=== PATIENT | female | born 1955 | race Caucasian/White ===

== ENCOUNTER 2020-02-12 09:14 | Inpatient (IN) | payer OTHER ==
[~2020-02-12] VITALS: Ht 167.6 cm; Wt 69.2 kg
[2020-02-12 11:01] LABS: BASO % 0.2 % (0.0-1.0); EOS % 0.3 % (0.0-3.0); HEMATOCRIT 35.2 % (36.0-47.0); HEMOGLOBIN 11.4 g/dl (12.0-15.5); LYMPH # 1.1 10^3/uL (1.5-5.0); LYMPH % 8.9 % (24.0-44.0); MEAN CORPUSCULAR HEMOGLOBIN 29.8 pg (27.0-33.0); MEAN CORPUSCULAR HGB CONC 32.4 g/dl (32.0-36.5); MEAN CORPUSCULAR VOLUME 92.1 fl (80.0-96.0); MONO # 1.4 10^3/uL (0.0-0.8); NEUTROPHILS # 9.7 10^3/uL (1.5-8.5); NEUTROPHILS % 78.9 % (36.0-66.0); PLATELET COUNT, AUTOMATED 222 10^3/uL (150-450); RED BLOOD COUNT 3.82 10^6/uL (4.00-5.40); WHITE BLOOD COUNT 12.3 10^3/uL (4.0-10.0)
[2020-02-12] MEDS ORDERED: ISOVUE-370 76% 100ML VIAL As Ordered ONE (11:10)
[2020-02-12 11:43] LABS: ERYTHROCYTE SEDIMENTATION RATE 85 mm/hr (0-30)
--- NOTE | 2020-02-12 11:55 | REPVR ---
PROCEDURE INFORMATION: Exam: CT Neck With Contrast Exam date and time: 02/12/2020 10:30 AM Age: 64 years old Clinical indication: Mass, lump, or swelling in neck; Additional info: Swelling, redness to right neck R/O infection TECHNIQUE: Imaging protocol: Computed tomography images of the neck with intravenous contrast. Radiation optimization: All CT scans at this facility use at least one of these dose optimization techniques: automated exposure control; mA and/or kV adjustment per patient size (includes targeted exams where dose is matched to clinical indication); or iterative reconstruction. Contrast material: ISOVUE 370; Contrast volume: 75 ml; Contrast route: INTRAVENOUS (IV); COMPARISON: No relevant prior studies available. FINDINGS: Nasopharynx: Unremarkable. Oropharynx: Partially obscured by spray artifact from dental hardware. No tonsillar abscess is seen. An enlarged right parapharyngeal lymph node is noted. Hypopharynx/larynx: There is mild leftward displacement of the hypopharynx and larynx. There is no stenosis. Retropharyngeal space: Unremarkable. Submandibular/Parotid glands: See "Soft tissues" finding. Thyroid: Normal. No enlarged or calcified nodules. Lymph nodes: Mild cervical lymphadenopathy is present, more pronounced on the right. Trachea: Visualized trachea is unremarkable. Lungs: Unremarkable as visualized. Bones/joints: Moderate degenerative changes of the cervical spine are present. Soft tissues: There is a large multilocular abscess in the right neck, measuring approximately 6.5 x 5.8 x 3.3 cm. The abscess extends from the right mandibular angle to the cricoid cartilage. Moderate surrounding inflammation is present. The abscess is displacing the right submandibular gland anteriorly and inferiorly. Infection may extend into the right parotid gland. There is an absent fat plane between the abscess and the right sternocleidomastoid muscle. There is compression and posteromedial displacement of the sternocleidomastoid muscle. IMPRESSION: Large multilocular abscess in the right neck as discussed above. Further evaluation is recommended. Electronically signed by: Chi Perry On 02/12/2020 11:55:43 AM
[2020-02-12] MEDS ORDERED: dexameTHASONE 20MG/5ML VIAL (J1100 PER 1MG) IV ONE (12:15)
[2020-02-12] MEDS ORDERED: AMPICILLIN SOD/SULBACTAM SOD 3 GM in D5W MINI-BAG PLUS 100 ML IV ONE (12:15)
[2020-02-12] MEDS ORDERED: NS 1,000 ML IV SCH (14:15)
[2020-02-12] MEDS ORDERED: BIOT1CAP2 PO (14:30)
[2020-02-12] MEDS ORDERED: FISH1000 PO (14:30)
[2020-02-12] MEDS ORDERED: VITA-158 PO (14:30)
[2020-02-12] MEDS ORDERED: COQ1200C3 PO (14:30)
[2020-02-12] MEDS ORDERED: VITA1CAP21 PO (14:30)
[2020-02-12] MEDS ORDERED: VITA400C56 PO (14:30)
[2020-02-12] MEDS ORDERED: LUTE20CA7 PO (14:30)
[2020-02-12] MEDS ORDERED: IBUP200T45 PO (14:30)
[2020-02-12] MEDS ORDERED: LIDOCAINE 2% 100MG/5ML SDV (FOR ANES.) As Ordered ONE ×2 (15:11→17:42)
[2020-02-12] MEDS ORDERED: LIDOCAINE 2% INJ 100 MG/5 ML SYRINGE As Ordered ONE (15:11)
[2020-02-12] MEDS ORDERED: SUCCINYLCHOLINE 100 MG/5 ML SYRINGE (J0330) As Ordered ONE (15:11)
[2020-02-12] MEDS ORDERED: ROCURONIUM BROMIDE 50 MG/5 ML VIAL As Ordered ONE (15:11)
[2020-02-12] MEDS ORDERED: propofoL 200 MG/20 ML VIAL As Ordered ONE (15:11)
--- NOTE | 2020-02-12 15:15 | HPEPDOC ---
[facility] Medical History & Physical Date of Admission Feb 12, 2020 Date of Service: Feb 12, 2020 Attending Physician: JD CASTILLO MD History and Physical CHIEF COMPLAINT: neck pain HISTORY OF PRESENT ILLNESS: 64 y/o F with no significant PMHx who presents with reports of right neck pain and swelling. Pt initially saw 2 dentists after noticing it Jan 23. She was prescribed abx but did not take them, stating she preferred taking herbs. Pt was seen by Dr Mason a week ago who asked that she have a CT, recommended Abx which she refused. 5 days ago, pt noticed increased swelling and redness at the right neck region extending to her chest. She denies trouble swallowing or breathing. Pt went to urgent care last night who asked the pt to go to the ER. Pt presents with increased pain and swelling and noted to have a large abscess. Dr. Peralta consulted in the ER. He will see pt after clinic and take pt to OR. Recc holding off on additional decadron (pt only received 1 dose 8mg in ER). Als o recc ID consult. Pt noted trouble opening mouth although no airway compromise. I have called Anesthesia and they are aware. PAST MEDICAL HISTORY: None PAST SURGICAL HISTORY:None SOCIAL HISTORY:Denies tobacco, alcohol, illicit drugs. FAMILY HISTORY:Non contributory ALLERGIES: Please see below. REVIEW OF SYSTEMS: HEENT: Denies sore throat/headache. +neck pain CARDIOVASCULAR: Denies chest pain/palpitations RESPIRATORY: Denies shortness of breath/cough GASTROINTESTINAL: denies nausea/vomiting GENITOURINARY: Denies dysuria/urinary urgency. MUSCULOSKELETAL: Denies myalgias/arthralgias NEUROLOGICAL: Denies any focal weakness HOME MEDICATIONS: Please see below. PHYSICAL EXAMINATION: Vitals: (see below) General: No acute distress, laying comfortably in bed. HEENT: Moist mucous membranes.No dental pain or oral abscess. Pt has trouble fully opening mouth, however airway patent. Neck: No JVD. Right neck swelling, induration, erythema extending to sternal region. no purulent drainage. Cardiac: RRR, No murmurs Pulm: Clear to auscultation b/l. No wheezing, rhonchi Abd: NT/ND + BS Ext: No edema or cyanosis LABORATORY DATA: See below. IMAGING: CT Neck 02/12/20 FINDINGS: Nasopharynx: Unremarkable. Oropharynx: Partially obscured by spray artifact from dental hardware. No tonsillar abscess is seen. An enlarged right parapharyngeal lymph node is noted. Hypopharynx/larynx: There is mild leftward displacement of the hypopharynx and larynx. There is no stenosis. Retropharyngeal space: Unremarkable. Submandibular/Parotid glands: See "Soft tissues" finding. Thyroid: Normal. No enlarged or calcified nodules. Lymph nodes: Mild cervical lymphadenopathy is present, more pronounced on the right. Trachea: Visualized trachea is unremarkable. Lungs: Unremarkable as visualized. Bones/joints: Moderate degenerative changes of the cervical spine are present. Soft tissues: There is a large multilocular abscess in the right neck, measuring approximately 6.5 x 5.8 x 3.3 cm. The abscess extends from the right mandibular angle to the cricoid cartilage. Moderate surrounding inflammation is present. The abscess is displacing the right submandibular gland anteriorly and inferiorly. Infection may extend into the right parotid gland. There is an absent fat plane between the abscess and the right sternocleidomastoid muscle. There is compression and posteromedial displacement of the sternocleidomastoid muscle. IMPRESSION: Large multilocular abscess in the right neck as discussed above. Further evaluation is recommended. MICROBIOLOGY: Please see below. ASSESSMENT/PLAN: 1. Large neck abscess - with leukocytosis. Pt had refused outpt abx. CT Neck (S ee above). Dr. Peralta consulted - will take to OR today. Bld cx sent. Unasyn. ID consulted. Further recc by ID/ENT. DVT Prophy:Hep sq Vital Signs Vital Signs Date Time Temp Pulse Resp B/P (MAP) Pulse Ox O2 Delivery O2 Flow Rate FiO2 02/12/20 13:18 98.3 78 20 119/56 (77) 99 Room Air Laboratory Data Labs 24H Laboratory Tests 2 02/12/20 10:40: Immature Granulocyte % (Auto) 0.7, Neutrophils (%) (Auto) 78.9H, Lymphocytes (%) (Auto) 8.9L, Monocytes (%) (Auto) 11.0H, Eosinophils (%) (Auto) 0.3, Basophils (%) (Auto) 0.2, Neutrophils # (Auto) 9.7H, Lymphocytes # (Auto) 1.1L, Monocytes # (Auto) 1.4H, Eosinophils # (Auto) 0.0, Basophils # (Auto) 0.0, Nucleated Red Blood Cells % (auto) 0.0, Erythrocyte Sedimentation Rate 85H, Lactic Acid Level 1.2, C-Reactive Protein, Quantitative 13.90H 02/12/20 10:51: POC Glucose (Misc Panel) 115H, POC Sodium (Misc Panel) 131L, POC Potassium (Misc Panel) 4.1, POC Chloride (Misc Panel) 93L, POC Total CO2 (Misc Panel) 28.0H, POC Blood Urea Nitrogen (Misc Panel 5L, POC Ionized Calcium (Misc Panel) 4.6, POC Creatinine (Misc Panel) 0.6, POC Hematocrit (Misc Panel) 39.0 02/12/20 14:09: CBC/BMP Laboratory Tests 02/12/20 10:40 Microbiology Microbiology 02/12/20 Blood Culture, Received Pending 02/12/20 Blood Culture, Received Pending Home Medications Scheduled Ascorbic Acid (Vitamin C) 500 Mg Tablet, 500 MG PO DAILY Biotin (Biotin) 1 Mg Capsule, 1 MG PO DAILY Lutein (Lutein) 20 Mg Capsule, 20 MG PO DAILY [place]-3 Fatty Acids/Fish Oil (Fish Oil 1,000 mg Capsule) 1 Each Capsule, 1,000 MG PO DAILY Ubidecarenone (Co Q10) 200 Mg Capsule, 200 MG PO DAILY Vitamin A Palmitate (Vitamin A) 10,000 Unit Capsule, 10,000 UNIT PO DAILY Vitamin E (Vitamin E) 400 Unit Capsule, 400 UNIT PO DAILY Scheduled PRN Ibuprofen (Ibu-200) 200 Mg Tablet, 200 MG PO Q6H PRN for PAIN Allergies Coded Allergies: No Known Allergies (Unverified , 02/12/20) A-FIB/CHADSVASC A-FIB History Current/History of A-Fib/PAF?: No JD CASTILLO MD Feb 12, 2020 15:15
[2020-02-12] MEDS ORDERED: LIDOCAINE W/EPINEPHRINE 1% 20ML VIAL As Ordered ONE (15:31)
[2020-02-12] MEDS ORDERED: POLYSPORIN TOPICAL OINTMENT 15GM As Ordered ONE (15:31)
[2020-02-12] MEDS ORDERED: MIDAZOLAM INJ 2MG/2ML VIAL (J2250 PER 1MG) As Ordered ONE (16:12)
[2020-02-12] MEDS ORDERED: fentaNYL 100 MCG/2 ML INJECTION (J3010) As Ordered ONE ×3 (16:13→18:53)
[2020-02-12] MEDS ORDERED: ACETAMINOPHEN 1000MG 100ML IV BTL (OFIRMEV) (J0131 PER 10MG) As Ordered ONE (17:42)
[2020-02-12] MEDS ORDERED: VANCOMYCIN 500MG/10ML VIAL As Ordered ONE (17:57)
[2020-02-12] MEDS ORDERED: SUGAMMADEX SODIUM 500 MG/5 ML VIAL (BRIDION) As Ordered ONE (18:30)
[2020-02-12] MEDS ORDERED: ONDANSETRON 4MG/2ML VIAL As Ordered ONE (18:52)
[2020-02-12] MEDS ORDERED: METOCLOPRAMIDE INJ 10MG/2ML VIAL (J2765 PER 1) As Ordered ONE (18:53)
[2020-02-12] MEDS ORDERED: oxyCODONE 5MG TAB As Ordered ONE (18:53)
[2020-02-12] MEDS: fentaNYL 100 MCG/2 ML INJECTION (J3010) IV PRN ×2 (18:58→19:10)
[2020-02-12] MEDS ORDERED: AMPICILLIN SOD/SULBACTAM SOD 3 GM in D5W MINI-BAG PLUS 100 ML IV SCH (19:00)
[2020-02-12] MEDS ORDERED: ONDANSETRON 4MG/2ML VIAL IV PRN (19:15)
[2020-02-12] MEDS ORDERED: MEPERIDINE INJ 25 MG/ML VIAL (J2175) IV PRN (19:15)
[2020-02-12] MEDS ORDERED: oxyCODONE 5MG TAB PO PRN (19:15)
[2020-02-12] MEDS ORDERED: LR 1,000 ML IV SCH (19:15)
[2020-02-12] MEDS ORDERED: METOCLOPRAMIDE INJ 10MG/2ML VIAL (J2765 PER 1) IV PRN (19:15)
[2020-02-12 20:00] VITALS: BP 122/58
[2020-02-12 20:30] VITALS: BP 117/57
[2020-02-12 21:00] VITALS: BP 111/55
[2020-02-12] MEDS: VANCOMYCIN HCL 1,000 MG, VIAL MATE ADAPTER 1 EACH in D5W 250 ML IV SCH (21:49)
[2020-02-12 22:00] VITALS: BP 94/60
[2020-02-12] MEDS: PIPERACILLIN/TAZOBACTAM SOD 4.5 GM in D5W MINI-BAG PLUS 50 ML IV SCH (23:14)
[2020-02-13] VITALS: BP 100/56
[2020-02-13 04:00] VITALS: BP 102/54
[2020-02-13] MEDS: PIPERACILLIN/TAZOBACTAM SOD 4.5 GM in D5W MINI-BAG PLUS 50 ML IV SCH ×4 (04:19→22:18)
[2020-02-13 05:52] LABS: HEMATOCRIT 33.4 % (36.0-47.0); HEMOGLOBIN 10.9 g/dl (12.0-15.5); RED BLOOD COUNT 3.67 10^6/uL (4.00-5.40); WHITE BLOOD COUNT 12.3 10^3/uL (4.0-10.0)
[2020-02-13 05:53] LABS: BASO % 0.2 % (0.0-1.0); LYMPH # 0.8 10^3/uL (1.5-5.0); LYMPH % 6.6 % (24.0-44.0); MEAN CORPUSCULAR HEMOGLOBIN 29.7 pg (27.0-33.0); MEAN CORPUSCULAR HGB CONC 32.6 g/dl (32.0-36.5); MONO # 0.5 10^3/uL (0.0-0.8); MONO % 4.2 % (0.0-5.0); NEUTROPHILS # 10.9 10^3/uL (1.5-8.5); NEUTROPHILS % 88.3 % (36.0-66.0); PLATELET COUNT, AUTOMATED 248 10^3/uL (150-450)
[2020-02-13] MEDS: LR 1,000 ML IV SCH ×3 (06:21→19:22)
[2020-02-13 06:29] LABS: ALBUMIN 2.4 GM/DL (3.2-5.2); ALT/SGPT 35 U/L (12-78); BILIRUBIN,TOTAL 0.5 MG/DL (0.2-1.0); BLOOD UREA NITROGEN 12 MG/DL (7-18); CALCIUM LEVEL 8.4 MG/DL (8.8-10.2); CARBON DIOXIDE LEVEL 27 MEQ/L (21-32); CHLORIDE LEVEL 100 MEQ/L (98-107); CREATININE FOR GFR 0.64 MG/DL (0.55-1.30); GLOMERULAR FILTRATION RATE > 60.0 (>45); GLUCOSE, FASTING 126 MG/DL (70-100); POTASSIUM SERUM 4.4 MEQ/L (3.5-5.1); SODIUM LEVEL 136 MEQ/L (136-145); TOTAL PROTEIN 6.7 GM/DL (6.4-8.2)
[2020-02-13 06:41] LABS: ERYTHROCYTE SEDIMENTATION RATE 85 mm/hr (0-30)
[2020-02-13 08:00] VITALS: BP 115/56
[2020-02-13] MEDS: VANCOMYCIN HCL 1,000 MG, VIAL MATE ADAPTER 1 EACH in D5W 250 ML IV SCH ×2 (08:30→20:48)
--- NOTE | 2020-02-13 10:08 | IPNPDOC ---
Text Note Date of Service The patient was seen on 02/13/20. NOTE Subjective: Pt feels better. Swelling improved. Able to open her mouth more. No CP/SOB/. Neck/chest erythema improved. PHYSICAL EXAMINATION: Vitals: (see below) General: No acute distress, laying comfortably in bed. HEENT: Moist mucous membranes.No dental pain or oral abscess. Able to open her mouth more. No jaw pain. Airway patent. Neck: No JVD. Right neck swelling, erythema improving. no purulent drainage. Cardiac: RRR, No murmurs Pulm: Clear to auscultation b/l. No wheezing, rhonchi Abd: NT/ND + BS Ext: No edema or cyanosis LABORATORY DATA: See below. IMAGING: CT Neck 02/12/20 FINDINGS: Nasopharynx: Unremarkable. Oropharynx: Partially obscured by spray artifact from dental hardware. No tonsillar abscess is seen. An enlarged right parapharyngeal lymph node is noted. Hypopharynx/larynx: There is mild leftward displacement of the hypopharynx and larynx. There is no stenosis. Retropharyngeal space: Unremarkable. Submandibular/Parotid glands: See "Soft tissues" finding. Thyroid: Normal. No enlarged or calcified nodules. Lymph nodes: Mild cervical lymphadenopathy is present, more pronounced on the right. Trachea: Visualized trachea is unremarkable. Lungs: Unremarkable as visualized. Bones/joints: Moderate degenerative changes of the cervical spine are present. Soft tissues: There is a large multilocular abscess in the right neck, measuring approximately 6.5 x 5.8 x 3.3 cm. The abscess extends from the right mandibular angle to the cricoid cartilage. Moderate surrounding inflammation is present. The abscess is displacing the right submandibular gland anteriorly and inferiorly. Infection may extend into the right parotid gland. There is an absent fat plane between the abscess and the right sternocleidomastoid muscle. There is compression and posteromedial displacement of the sternocleidomastoid muscle. IMPRESSION: Large multilocular abscess in the right neck as discussed above. Further evaluation is recommended. MICROBIOLOGY: Please see below. ASSESSMENT/PLAN: 1. Large neck abscess s/p I&D, concern for necrotizing fascitis --> Abx broadened to Vanco/Zosyn per Dr Sweet. . CT Neck (See above). Appreciate Dr. Peralta's input. \\Bld cx sent. Further recc by ID/ENT. DVT Prophy:Hep sq VS,Fishbone, I+O VS, Fishbone, I+O Laboratory Tests 02/12/20 10:40 02/13/20 04:58 Vital Signs Date Time Temp Pulse Resp B/P (MAP) Pulse Ox O2 Delivery O2 Flow Rate FiO2 02/13/20 08:00 98.1 57 20 115/56 (75) 97 Room Air I&O- Last 24 Hours up to 6 AM 02/13/20 06:00 Intake Total 2330 ml Output Total 0 ml Balance 2330 ml JD CASTILLO MD Feb 13, 2020 10:07
[2020-02-13 12:00] VITALS: BP 119/57
[2020-02-13] MEDS: HEPARIN SOD (PORCINE) 5000UNITS/ML 1ML VIAL/SYRINGE SQ SCH ×2 (13:36→21:24)
[2020-02-13 16:00] VITALS: BP 115/68
[2020-02-13 20:00] VITALS: BP 119/59
[2020-02-14] VITALS: BP 100/57
[2020-02-14] MEDS: MUPIROCIN 2% OINT 22 GM TUBE TOP SCH ×4 (02:17→20:55)
[2020-02-14 04:00] VITALS: BP 118/62
[2020-02-14] MEDS: LR 1,000 ML IV SCH ×3 (04:51→22:30)
[2020-02-14] MEDS: PIPERACILLIN/TAZOBACTAM SOD 4.5 GM in D5W MINI-BAG PLUS 50 ML IV SCH ×4 (04:51→22:30)
[2020-02-14] MEDS: HEPARIN SOD (PORCINE) 5000UNITS/ML 1ML VIAL/SYRINGE SQ SCH ×3 (05:02→20:55)
[2020-02-14 08:00] VITALS: BP 142/64
[2020-02-14 08:11] LABS: BASO % 0.6 % (0.0-1.0); EOS # 0.1 10^3/uL (0.0-0.5); HEMOGLOBIN 10.6 g/dl (12.0-15.5); LYMPH # 2.5 10^3/uL (1.5-5.0); LYMPH % 34.2 % (24.0-44.0); MEAN CORPUSCULAR HEMOGLOBIN 29.4 pg (27.0-33.0); MEAN CORPUSCULAR HGB CONC 32.1 g/dl (32.0-36.5); MEAN CORPUSCULAR VOLUME 91.4 fl (80.0-96.0); MONO # 0.5 10^3/uL (0.0-0.8); MONO % 7.4 % (0.0-5.0); NEUTROPHILS # 4.1 10^3/uL (1.5-8.5); NEUTROPHILS % 56.7 % (36.0-66.0); PLATELET COUNT, AUTOMATED 244 10^3/uL (150-450); RED BLOOD COUNT 3.61 10^6/uL (4.00-5.40); WHITE BLOOD COUNT 7.2 10^3/uL (4.0-10.0)
[2020-02-14 09:02] LABS: ERYTHROCYTE SEDIMENTATION RATE 73 mm/hr (0-30)
[2020-02-14] MEDS ORDERED: ACETAMINOPHEN TAB 650MG DOSE (2X325MG) PO PRN (09:15)
[2020-02-14 09:58] LABS: ALBUMIN 2.4 GM/DL (3.2-5.2); ALT/SGPT 36 U/L (12-78); BILIRUBIN,TOTAL 0.3 MG/DL (0.2-1.0); BLOOD UREA NITROGEN 14 MG/DL (7-18); C REACTIVE PROTEIN QUANTITATIV 8.62 MG/DL (0.00-0.30); CALCIUM LEVEL 8.6 MG/DL (8.8-10.2); CARBON DIOXIDE LEVEL 30 MEQ/L (21-32); CHLORIDE LEVEL 107 MEQ/L (98-107); CREATININE FOR GFR 0.86 MG/DL (0.55-1.30); GLOMERULAR FILTRATION RATE > 60.0 (>45); GLUCOSE, FASTING 89 MG/DL (70-100); POTASSIUM SERUM 4.2 MEQ/L (3.5-5.1); SODIUM LEVEL 142 MEQ/L (136-145); TOTAL PROTEIN 6.4 GM/DL (6.4-8.2)
[2020-02-14] MEDS: VANCOMYCIN HCL 1,000 MG, VIAL MATE ADAPTER 1 EACH in D5W 250 ML IV SCH ×2 (10:38→20:54)
--- NOTE | 2020-02-14 10:45 | IPNPDOC ---
Text Note Date of Service The patient was seen on 02/14/20. NOTE Subjective: Pt feels better. Swelling and erythema improved. No CP/SOB/. Ne ck/chest erythema improved. PHYSICAL EXAMINATION: Vitals: (see below) General: No acute distress, laying comfortably in bed. HEENT: Moist mucous membranes.No dental pain or oral abscess. Able to open her mouth more. No jaw pain. Airway patent. Neck: No JVD. Right neck swelling, erythema improving. no purulent drainage. Incision site clean and dry Cardiac: RRR, No murmurs Pulm: Clear to auscultation b/l. No wheezing, rhonchi Abd: NT/ND + BS Ext: No edema or cyanosis LABORATORY DATA: See below. IMAGING: CT Neck 02/12/20 FINDINGS: Nasopharynx: Unremarkable. Oropharynx: Partially obscured by spray artifact from dental hardware. No tonsillar abscess is seen. An enlarged right parapharyngeal lymph node is noted. Hypopharynx/larynx: There is mild leftward displacement of the hypopharynx and larynx. There is no stenosis. Retropharyngeal space: Unremarkable. Submandibular/Parotid glands: See "Soft tissues" finding. Thyroid: Normal. No enlarged or calcified nodules. Lymph nodes: Mild cervical lymphadenopathy is present, more pronounced on the right. Trachea: Visualized trachea is unremarkable. Lungs: Unremarkable as visualized. Bones/joints: Moderate degenerative changes of the cervical spine are present. Soft tissues: There is a large multilocular abscess in the right neck, measuring approximately 6.5 x 5.8 x 3.3 cm. The abscess extends from the right mandibular angle to the cricoid cartilage. Moderate surrounding inflammation is present. The abscess is displacing the right submandibular gland anteriorly and inferiorly. Infection may extend into the right parotid gland. There is an absent fat plane between the abscess and the right sternocleidomastoid muscle. There is compression and posteromedial displacement of the sternocleidomastoid muscle. IMPRESSION: Large multilocular abscess in the right neck as discussed above. Further evaluation is recommended. MICROBIOLOGY: Please see below. ASSESSMENT/PLAN: 1. Large neck abscess s/p I&D, concern for necrotizing fascitis --> Abx broadened to Vanco/Zosyn per Dr Sweet. . CT Neck (See above). Appreciate Dr. Peralta's input. wound/Bld cx sent and pending. Further recc by ID/ENT. DVT Prophy:Hep sq VS,Fishbone, I+O VS, Fishbone, I+O Laboratory Tests 02/14/20 07:57 Vital Signs Date Time Temp Pulse Resp B/P (MAP) Pulse Ox O2 Delivery O2 Flow Rate FiO2 02/14/20 08:00 100.0 61 18 142/64 (90) 97 Room Air I&O- Last 24 Hours up to 6 AM 02/14/20 06:00 Intake Total 4430 ml Output Total 0 ml Balance 4430 ml JD CASTILLO MD Feb 14, 2020 10:45
[2020-02-14 12:00] VITALS: BP 121/58
[2020-02-14 16:00] VITALS: BP 118/62
[2020-02-14 20:00] VITALS: BP 116/56
[2020-02-15] VITALS: BP 110/57
[2020-02-15 04:00] VITALS: BP 119/69
[2020-02-15] MEDS: PIPERACILLIN/TAZOBACTAM SOD 4.5 GM in D5W MINI-BAG PLUS 50 ML IV SCH ×4 (05:10→21:26)
[2020-02-15] MEDS: HEPARIN SOD (PORCINE) 5000UNITS/ML 1ML VIAL/SYRINGE SQ SCH ×4 (05:33→21:32)
[2020-02-15 08:00] VITALS: BP 117/57
[2020-02-15 08:11] LABS: BASO % 0.6 % (0.0-1.0); EOS # 0.2 10^3/uL (0.0-0.5); EOS % 3.8 % (0.0-3.0); HEMATOCRIT 30.5 % (36.0-47.0); HEMOGLOBIN 9.6 g/dl (12.0-15.5); LYMPH # 1.9 10^3/uL (1.5-5.0); LYMPH % 39.9 % (24.0-44.0); MEAN CORPUSCULAR HEMOGLOBIN 29.3 pg (27.0-33.0); MEAN CORPUSCULAR HGB CONC 31.5 g/dl (32.0-36.5); MONO # 0.4 10^3/uL (0.0-0.8); MONO % 9.3 % (0.0-5.0); NEUTROPHILS # 2.2 10^3/uL (1.5-8.5); PLATELET COUNT, AUTOMATED 234 10^3/uL (150-450); RED BLOOD COUNT 3.28 10^6/uL (4.00-5.40); WHITE BLOOD COUNT 4.7 10^3/uL (4.0-10.0)
[2020-02-15] MEDS: LR 1,000 ML IV SCH (08:15)
[2020-02-15 08:30] LABS: ERYTHROCYTE SEDIMENTATION RATE 67 mm/hr (0-30)
[2020-02-15 08:33] LABS: ALBUMIN 2.2 GM/DL (3.2-5.2); ALT/SGPT 30 U/L (12-78); BILIRUBIN,TOTAL 0.3 MG/DL (0.2-1.0); BLOOD UREA NITROGEN 13 MG/DL (7-18); C REACTIVE PROTEIN QUANTITATIV 3.85 MG/DL (0.00-0.30); CALCIUM LEVEL 8.1 MG/DL (8.8-10.2); CARBON DIOXIDE LEVEL 31 MEQ/L (21-32); CHLORIDE LEVEL 108 MEQ/L (98-107); CREATININE FOR GFR 0.83 MG/DL (0.55-1.30); GLOMERULAR FILTRATION RATE > 60.0 (>45); GLUCOSE, FASTING 92 MG/DL (70-100); POTASSIUM SERUM 4.1 MEQ/L (3.5-5.1); SODIUM LEVEL 141 MEQ/L (136-145); TOTAL PROTEIN 6.2 GM/DL (6.4-8.2)
[2020-02-15] MEDS: MUPIROCIN 2% OINT 22 GM TUBE TOP SCH ×3 (09:17→21:27)
[2020-02-15] MEDS: VANCOMYCIN HCL 1,000 MG, VIAL MATE ADAPTER 1 EACH in D5W 250 ML IV SCH (09:17)
[2020-02-15 12:00] VITALS: BP 123/68
--- NOTE | 2020-02-15 14:01 | IPNPDOC ---
Text Note Date of Service The patient was seen on 02/15/20. NOTE Subjective: Pt feels better. Neck swelling and erythema improved. PHYSICAL EXAMINATION: Vitals: (see below) General: No acute distress, laying comfortably in bed. HEENT: Moist mucous membranes.No dental pain or oral abscess. Able to open her mouth more. No jaw pain. Airway patent. Neck: No JVD. Right neck swelling, erythema improving. no purulent drainage. Incision site clean with serous fluid Cardiac: RRR, No murmurs Pulm: Clear to auscultation b/l. No wheezing, rhonchi Abd: NT/ND + BS Ext: No edema or cyanosis LABORATORY DATA: See below. IMAGING: CT Neck 02/12/20 FINDINGS: Nasopharynx: Unremarkable. Oropharynx: Partially obscured by spray artifact from dental hardware. No tonsillar abscess is seen. An enlarged right parapharyngeal lymph node is noted. Hypopharynx/larynx: There is mild leftward displacement of the hypopharynx and larynx. There is no stenosis. Retropharyngeal space: Unremarkable. Submandibular/Parotid glands: See "Soft tissues" finding. Thyroid: Normal. No enlarged or calcified nodules. Lymph nodes: Mild cervical lymphadenopathy is present, more pronounced on the right. Trachea: Visualized trachea is unremarkable. Lungs: Unremarkable as visualized. Bones/joints: Moderate degenerative changes of the cervical spine are present. Soft tissues: There is a large multilocular abscess in the right neck, measuring approximately 6.5 x 5.8 x 3.3 cm. The abscess extends from the right mandibular angle to the cricoid cartilage. Moderate surrounding inflammation is present. The abscess is displacing the right submandibular gland anteriorly and inferiorly. Infection may extend into the right parotid gland. There is an absent fat plane between the abscess and the right sternocleidomastoid muscle. There is compression and posteromedial displacement of the sternocleidomastoid muscle. IMPRESSION: Large multilocular abscess in the right neck as discussed above. Further evaluation is recommended. MICROBIOLOGY: Please see below. ASSESSMENT/PLAN: 1. Large neck abscess s/p I&D, concern for necrotizing fascitis --> Abx broadened to Vanco/Zosyn per Dr Sweet. . CT Neck (See above). Appreciate Dr. Peralta's input. wound/Bld cx sent and pending. Further recc by ID/ENT. Plan to de-escalade abx once final cx back and recc by ID. DVT Prophy:Hep sq VS,Fishbone, I+O VS, Fishbone, I+O Laboratory Tests 02/15/20 07:57 Vital Signs Date Time Temp Pulse Resp B/P (MAP) Pulse Ox O2 Delivery O2 Flow Rate FiO2 02/15/20 12:00 97.8 64 16 123/68 (86) 100 Room Air I&O- Last 24 Hours up to 6 AM 02/15/20 05:59 Intake Total 3880 ml Output Total 1100 ml Balance 2780 ml JD CASTILLO MD Feb 15, 2020 14:01
[2020-02-15 16:00] VITALS: BP 149/66
[2020-02-15] MEDS ORDERED: IBUPROFEN 400 MG TAB PO PRN (16:30)
[2020-02-15 20:00] VITALS: BP 117/61
[2020-02-16] VITALS: BP 106/55
[2020-02-16 04:00] VITALS: BP 120/61
[2020-02-16] MEDS: PIPERACILLIN/TAZOBACTAM SOD 4.5 GM in D5W MINI-BAG PLUS 50 ML IV SCH ×2 (04:49→10:25)
[2020-02-16 05:26] LABS: BASO % 0.8 % (0.0-1.0); EOS # 0.3 10^3/uL (0.0-0.5); EOS % 5.3 % (0.0-3.0); HEMATOCRIT 34.6 % (36.0-47.0); HEMOGLOBIN 10.7 g/dl (12.0-15.5); LYMPH # 2.2 10^3/uL (1.5-5.0); MEAN CORPUSCULAR HEMOGLOBIN 28.8 pg (27.0-33.0); MEAN CORPUSCULAR HGB CONC 30.9 g/dl (32.0-36.5); MEAN CORPUSCULAR VOLUME 93.3 fl (80.0-96.0); MONO # 0.4 10^3/uL (0.0-0.8); MONO % 8.3 % (0.0-5.0); NEUTROPHILS % 40.2 % (36.0-66.0); PLATELET COUNT, AUTOMATED 290 10^3/uL (150-450); RED BLOOD COUNT 3.71 10^6/uL (4.00-5.40); WHITE BLOOD COUNT 4.9 10^3/uL (4.0-10.0)
[2020-02-16] MEDS: HEPARIN SOD (PORCINE) 5000UNITS/ML 1ML VIAL/SYRINGE SQ SCH (05:49)
[2020-02-16 05:53] LABS: ALBUMIN 2.4 GM/DL (3.2-5.2); ALT/SGPT 28 U/L (12-78); BILIRUBIN,TOTAL 0.3 MG/DL (0.2-1.0); BLOOD UREA NITROGEN 11 MG/DL (7-18); C REACTIVE PROTEIN QUANTITATIV 2.79 MG/DL (0.00-0.30); CALCIUM LEVEL 8.7 MG/DL (8.8-10.2); CARBON DIOXIDE LEVEL 30 MEQ/L (21-32); CHLORIDE LEVEL 108 MEQ/L (98-107); CREATININE FOR GFR 0.77 MG/DL (0.55-1.30); GLOMERULAR FILTRATION RATE > 60.0 (>45); GLUCOSE, FASTING 103 MG/DL (70-100); POTASSIUM SERUM 4.6 MEQ/L (3.5-5.1); SODIUM LEVEL 141 MEQ/L (136-145); TOTAL PROTEIN 6.2 GM/DL (6.4-8.2)
[2020-02-16 08:00] VITALS: BP 125/64
--- NOTE | 2020-02-16 08:56 | CR ---
DATE OF CONSULTATION: 02/12/2020 ATTENDING PHYSICIAN: Wilfred Sweet MD HISTORY OF PRESENT ILLNESS: Patient is a 64-year-old female presenting with a 2 1/2 week history of progressively worsening right jaw pain and swelling. She notes that on 01/24/2020 she developed some pain underneath the right side of her jaw and knowing that she does have a history of periodontal disease, began taking ibuprofen and contacted her dentist for evaluation. On going to the dentist, they were unable to find anything of significance so she returned home and 1 week later she continued to experience symptoms and her symptoms began to mildly worsen so she went to an oral surgeon, Dr. Carrington, who did a thorough exam and found no evidence of an infection and performed a maxillofacial CT scan showing a salivary gland stone, advising that this would resolve on its own. A week later, on 02/04/2020, she went to Dr. Mason with ear, nose, and throat (ENT) who advised conservative management and sucking on a lemon as he was hopeful it would resolve on its own. However, on 02/08/2020, she began to develop erythema overlying her jaw and began to experience worsening swelling over the last 5 days, leading her to present to the emergency room (ER). Imaging in the ER showed a multilocular abscess and on review of the outpatient imaging by Dr. Joyner was found a multilocular abscess and so the hospitalist service and ENT was called for admission who is calling the infectious disease service for IV antibiotic recommendations. PAST MEDICAL HISTORY: History of dental abscesses in the past. PAST SURGICAL HISTORY: None. FAMILY HISTORY: Mother alive at 95 years old with diabetes. Father alive, he is blind and has BPH. SOCIAL HISTORY: Lived in [facility] [place] a [place] [phone]. Uses no tobacco products. Drinks no alcohol. Denies any illicit drug use including marijuana, heroin, cocaine, PCP. Lives currently in [place] and has a single dog at home. No exposures to any exotic animals while living abroad. ALLERGIES: No known drug allergies. MEDICATIONS: None. States she does use nonspecific herbal supplements on a regular basis. OBJECTIVE: REVIEW OF SYSTEMS: Constitutional: Denies fevers, chills, night sweats, recent unexpected weight gain. HEENT: Denies headaches, dizziness, eye pain, difficulty seeing, nasal congestion, rhinorrhea, nosebleeds, sore throat. Admits to right-sided jaw pain. Neck: Admits to swelling and redness on the right side of her jaw. Cardiovascular: Denies chest pain, palpitations, or dyspnea on exertion. Respiratory: Denies cough, dyspnea, wheezing, or hemoptysis. Gastrointestinal (GI): Denies nausea, vomiting, abdominal pain, constipation, diarrhea, melena, hematochezia. Genitourinary () Denies dysuria, hematuria, frequency, or urgency. Musculoskeletal: Denies muscle aches or joint pains. Skin: Admits to skin redness on the right side of her neck but otherwise denies any rashes or skin lesions. Neurologic: Denies numbness, tingling, or weakness in upper or lower extremities. PHYSICAL EXAMINATION: Vital signs: Temperature 98.1, maximum temperature (T-max) 99.6, pulse 73 and regular, respiratory rate of 20, blood pressure 114/57, saturating 97% on room air. General: Patient is a tired appearing female who appears stated age in no acute distress resting comfortably in the ER bed. HEENT: Head is normocephalic, atraumatic. Extraocular movements intact. No scleral icterus. Mucous membranes moist. Poor dentition with missing teeth on the right and upper teeth on the right concerning with possible black gum involvement. Multiple cavities throughout the mouth. Neck: There is a large 6-7 cm right-sided submandibular area of redness, swelling, and induration that is tender to light palpation overlying the right sternocleidomastoid. Left side exhibiting mild submandibular lymphadenopathy. No supraclavicular lymphadenopathy. Cardiovascular: Regular rate and rhythm, normal S1 and S2. No murmurs, gallops, rubs. Lungs: Clear to auscultation bilaterally. No wheezes, crackles, or rhonchi. No dullness to percussion bilaterally. Abdomen: Soft, nontender, nondistended. Bowel sounds present. No hepatosplenomegaly. No masses or ecchymosis. Extremities: No swelling or edema. Neurologic: Alert and oriented times three. Cranial nerves II-XII grossly intact. Strength +5/5 in bilateral upper and lower extremities. Psychiatric: Normal mood and affect. LABORATORY DATA: White blood cell count of 12.3, hemoglobin 11.4, hematocrit 35.2, platelet count 222, sodium 131, potassium 4.1, chloride 93, bicarbonate 28, BUN of 5, creatinine 0.6, ionized calcium of 4.6, glucose 115, lactic acid of 0.7, CRP of 13.9, COVID-19 PCR negative, ESR of 85. Microbiology: Blood culture times two pending. CT chest with contrast showing there is a large multilocular abscess in the right neck measuring approximately 6.5 x 5.8 x 3.3 cm. The abscess extends from the right mandibular angle to the cricoid cartilage. Moderate surrounding inflammation is present. The abscess is displacing the right submandibular gland anteriorly and inferiorly. Infection may extend into the right parotid gland. There is an absent fat plain between the abscess and the right sternocleidomastoid muscle. There is compression and posteromedial displacement of the sternocleidomastoid muscle. Impression: Large multilocular abscess in the right neck as discussed above. Further evaluation is recommended. ASSESSMENT/PLAN: Right-sided neck abscess. This is likely related to her periodontal disease , however we will await the results of ear, nose, and throat (ENT) surgery for further clarification on what type of infection she has. We did not suspect Lemierres syndrome at this time given how long she has had this infection going and the lack of fever on exam and that she is not sick in general. Agree with medicines decision for Unasyn 3 grams IV every 6 hours. We will order a methicillin-resistant Staphylococcus aureus (MRSA) polymerase chain reaction (PCR) screen in the event she requires MRSA coverage. However, given that the infection likely represents anaerobic growth, we will also order a QuantiFERON Gold test to rule out tuberculosis (TB). However, this is less likely on our differential and we will also put in an order for an AP and lateral chest x-ray, in the event that this is negative patient will not require isolation precautions for the TB. Dr. Joyner will be collecting acid-fast bacillus (AFB) and anaerobic cultures as well and we will further tailor our antibiotics based on these. Thank you for your consultation. Please do not hesitate to contact us with any questions or concerns. We will continue to follow along. CHAZ
[2020-02-16] MEDS: MUPIROCIN 2% OINT 22 GM TUBE TOP SCH (09:00)
--- NOTE | 2020-02-16 09:03 | IPN ---
DATE: 02/13/2020 Patient is status post incision and drainage of the right neck abscess done yesterday evening by myself. Patient has been feeling better since the incision and drainage. She has noticed less erythema over the right neck skin. 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 Gram stain of the wound abscess showed numerous gram-positive cocci and gram-positive rods. Other microbiology cultures still pending. On examination, patient appears in no acute distress. Vital signs stable and afebrile. The right neck incision drain site is still draining via the Devin drain. The boundary of the erythema over the right neck and upper chest area have been marked by myself today. No crepitus palpated. Sensation of the skin to touch intact. IMPRESSION: 64-year-old woman with large right neck abscess status post incision and drainage done on 02/12/2020. PLAN: Patient is to continue with the IV vancomycin and Zosyn per infectious disease recommendation. Continue the care as per the hospitalist group. Will see the patient again tomorrow for followup. CHAZ
--- NOTE | 2020-02-16 09:08 | IPN ---
DATE: 02/14/2020 This 67-year-old woman is status post incision and drainage of the right neck abscess done 2 days ago. She is feeling better. Her sensation of the right neck skin has improved since yesterday. She is currently on IV vancomycin and Zosyn. She is tolerating oral intake without difficulty. On examination, patient appears in no acute distress. Neck is mobile. Vital signs stable. Maximum temperature (T-max) of 100 degrees Fahrenheit this morning. Right neck skin is much less tense on palpation, less erythema around the right neck. There is no progression of the erythema at this area beyond the marked boundary that was marked yesterday. The Devin drain is in place with serosanguinous fluid. IMPRESSION: Patient is recovering well status post incision and drainage (I and D) right neck abscess. She is continuing with the IV vancomycin and Zosyn. Currently, the final results of the culture and sensitivity (C and S) is still pending. I will follow the patient tomorrow again. CHAZ
[2020-02-16] MEDS ORDERED: AUGM875T28 PO (11:26)
[2020-02-16 11:42] LABS: ERYTHROCYTE SEDIMENTATION RATE 61 mm/hr (0-30)
[2020-02-16 12:00] VITALS: BP 113/67
--- NOTE | 2020-02-16 21:47 | DS.PDOC ---
Discharge Summary General Date of Admission Feb 12, 2020 at 14:47 Date of Discharge 02/16/20 Discharge Summary PROCEDURES PERFORMED DURING STAY: I & D of Neck abscess. DISCHARGE DIAGNOSES: Right neck abscess Odontogenic disease COMPLICATIONS/CHIEF COMPLAINT: Neck Abscess. HOSPITAL COURSE: 64 y/o F with no significant PMHx who presented to ED right neck pain and swelling increasing for the past 3 weeks. Pt saw 2 dentists after noticing it on Jan 23. She was prescribed abx but did not take them, stating she preferred taking herbs. Pt was seen by Dr Mason a week ago who asked that she have a CT, recommended Abx which she refused. Over the past week the swelling and redness has increased to such a level that it has reached her chest. She was admitted for large neck abscess. She underwent I&D with Dr Joyner on 02/11 and placement of drain. She was initially treated with vanco and zosyn. ID was c onsulted. Culture from the abscess came back Streptococcus constellatus so vanco was stopped and continued on zosyn. Pathology showed Necrotic tissue with acute and chronic inflammation with microabscess formation. At present there is minimal drainage from the neck drain. Swelling and pain mostly resolved. Patient has been cleared by ENT and ID for discharge to follow up with oral surgeon. Jim is discharged with Augmentin and drain in place to follow up with ENT. DISCHARGE MEDICATIONS: Please see below. ALLERGIES: Please see below. PHYSICAL EXAMINATION ON DISCHARGE: VITAL SIGNS: Please see below. General: No acute distress, laying comfortably in bed. HEENT: Moist mucous membranes.No dental pain or oral abscess. Able to open her mouth more. No jaw pain. Airway patent. Neck: No JVD. Right neck swelling, erythema improving. no purulent drainage. Incision site clean with serous fluid Cardiac: RRR, No murmurs Pulm: Clear to auscultation b/l. No wheezing, rhonchi Abd: NT/ND + BS Ext: No edema or cyanosis LABORATORY DATA: Please see below. IMAGING: CT Neck 02/12/20 FINDINGS: Nasopharynx: Unremarkable. Oropharynx: Partially obscured by spray artifact from dental hardware. No tonsillar abscess is seen. An enlarged right parapharyngeal lymph node is noted. Hypopharynx/larynx: There is mild leftward displacement of the hypopharynx and larynx. There is no stenosis. Retropharyngeal space: Unremarkable. Submandibular/Parotid glands: See "Soft tissues" finding. Thyroid: Normal. No enlarged or calcified nodules. Lymph nodes: Mild cervical lymphadenopathy is present, more pronounced on the right. Trachea: Visualized trachea is unremarkable. Lungs: Unremarkable as visualized. Bones/joints: Moderate degenerative changes of the cervical spine are present. Soft tissues: There is a large multilocular abscess in the right neck, measuring approximately 6.5 x 5.8 x 3.3 cm. The abscess extends from the right mandibular angle to the cricoid cartilage. Moderate surrounding inflammation is present. The abscess is displacing the right submandibular gland anteriorly and inferiorly. Infection may extend into the right parotid gland. There is an absent fat plane between the abscess and the right sternocleidomastoid muscle. There is compression and posteromedial displacement of the sternocleidomastoid muscle. ACTIVITY: [As tolerated]. DIET: As tolerated DISPOSITION: 01 Home, Self-Care. DISCHARGE INSTRUCTIONS: Follow up Dr Joyner in 1 to 3 days Follow up Oral surgeon in 1 to 3 days. PMD in 1 week ITEMS TO FOLLOWUP ON ON OUTPATIENT: Anareobic cultures AFB stain and culture. Fungal stain and culture DISCHARGE CONDITION: [Stable]. TIME SPENT ON DISCHARGE: 35 minutes. Vital Signs/I&Os Vital Signs Date Time Temp Pulse Resp B/P (MAP) Pulse Ox O2 Delivery O2 Flow Rate FiO2 02/16/20 12:00 98.7 64 16 113/67 (82) 95 Room Air I&O- Last 24 Hours up to 6 AM 02/16/20 07:00 Intake Total 560 ml Output Total 0 ml Balance 560 ml Laboratory Data Labs 24H Laboratory Tests 2 02/16/20 04:56: Immature Granulocyte % (Auto) 0.4, Neutrophils (%) (Auto) 40.2, Lymphocytes (%) (Auto) 45.0H, Monocytes (%) (Auto) 8.3H, Eosinophils (%) (Auto) 5.3H, Basophils (%) (Auto) 0.8, Neutrophils # (Auto) 2.0, Lymphocytes # (Auto) 2.2, Monocytes # (Auto) 0.4, Eosinophils # (Auto) 0.3, Basophils # (Auto) 0.0, Nucleated Red Bloo d Cells % (auto) 0.0, Erythrocyte Sedimentation Rate 61H, Anion Gap 3L, Glomerular Filtration Rate > 60.0, Calcium Level 8.7L, Total Bilirubin 0.3, Aspartate Amino Transf (AST/SGOT) 15, Alanine Aminotransferase (ALT/SGPT) 28, Alkaline Phosphatase 69, C-Reactive Protein, Quantitative 2.79H, Total Protein 6.2L, Albumin 2.4L, Albumin/Globulin Ratio 0.6L CBC/BMP Laboratory Tests 02/16/20 04:56 Microbiology Microbiology 02/12/20 Acid Fast Stain, Received Pending 02/12/20 Mycobacterial Culture, Received Pending 02/12/20 Fungal Smear, Received Pending 02/12/20 Fungal Culture, Received Pending 02/12/20 Gram Stain - Final, Resulted 02/12/20 Abscess Culture - Final, Resulted Streptococcus Constellatus 02/12/20 Anaerobic Culture, Resulted Pending 02/12/20 Blood Culture - Preliminary, Resulted No Growth after 72 hours. All specime... 02/12/20 Blood Culture - Preliminary, Resulted No Growth after 72 hours. All specime... Discharge Medications Scheduled Amoxicillin/Potassium Clav (Augmentin 875-125 Tablet) 1 Each Tablet, 1 TAB PO BID Ascorbic Acid (Vitamin C) 500 Mg Tablet, 500 MG PO DAILY, (Reported) Biotin (Biotin) 1 Mg Capsule, 1 MG PO DAILY, (Reported) Lutein (Lutein) 20 Mg Capsule, 20 MG PO DAILY, (Reported) [place]-3 Fatty Acids/Fish Oil (Fish Oil 1,000 mg Capsule) 1 Each Capsule, 1,000 MG PO DAILY, (Reported) Ubidecarenone (Co Q10) 200 Mg Capsule, 200 MG PO DAILY, (Reported) Vitamin A Palmitate (Vitamin A) 10,000 Unit Capsule, 10,000 UNIT PO DAILY, (Reported) Vitamin E (Vitamin E) 400 Unit Capsule, 400 UNIT PO DAILY, (Reported) Scheduled PRN Ibuprofen (Ibu-200) 200 Mg Tablet, 200 MG PO Q6H PRN for PAIN, (Reported) Allergies Coded Allergies: No Known Allergies (Unverified , 02/12/20) GOPAL SWEENEY MD Feb 16, 2020 21:47
--- NOTE | 2020-02-18 15:02 | IPN ---
INFECTIOUS DISEASE PROGRESS NOTE DATE: 02/15/2020. Dictation in conjunction with Dr. Wilfred Sweet. SUBJECTIVE: No acute events overnight. Patient states that she is doing much better than in the past couple of days. She still has some pain with turning her neck, however, overall she is much improved from days prior and her wound site is not draining very much at all. She denies any fevers, chills, chest pain, difficulty breathing, abdominal pain, nausea or vomiting, constipation or diarrhea. OBJECTIVE: VITAL SIGNS: Afebrile overnight, temperature 98.1, pulse 64, respiratory rate 16, blood pressure 149/66, sating 99% on room air. GENERAL: She is a well appearing female, who appears stated age, sitting upright in bed in no acute distress. HEENT: She has a wound covering over her right jaw. On removal of bandages, wound appears to be healing well with significant reduction in erythema, overall 80% improved from prior to her surgical drainage. Head is normocephalic, atraumatic. EOMI. No scleral icterus. Mucous membranes moist. Once again upper right portion of jaw, top row of teeth on the right, it is noted that there is a poorly healing gum line leading to a tooth. CARDIOVASCULAR: Regular rate and rhythm, normal S1 and S2. No murmurs, gallops or rubs. RESPIRATORY: Clear to auscultation bilaterally with no wheezes, crackles, rhonchi. ABDOMEN: Soft, nontender, non-distended. Bowel sounds present. EXTREMITIES: No edema in bilateral lower extremities. NEURO: Alert and oriented x3. Strength was 5/5 in bilateral upper and lower extremities. LABORATORY DATA: White blood cell count 4.7, hemoglobin 9.6, hematocrit 30.5, platelet count 234,000. ESR 67. Sodium 141, potassium 4.1, chloride 108, bicarb 31, BUN 13, creatinine 0.83, glucose 92, calcium 8.1. Total bilirubin 0.3. AST 18, ALT 30, alkaline phosphatase 74. CRP 3.85. Total protein 6.2. Albumin 2.2. Vancomycin trough 14.1. MRSA PCR negative. MICROBIOLOGY: Showing neck abscess culture growing Streptococcus constellatus with acid fast mycobacterial fungal culture and smear all still pending. Tissue biopsy pending as well. ASSESSMENT AND PLAN: Right submandibular neck abscess: Patient is currently still on Vancomycin and Zosyn, however given her positive Strep cultures for Strep constellatus and her negative MRSA PCR, we will be discontinuing the Vancomycin at this time. Because of how bad her initial infection was, we will be continuing her I.V. Zosyn for at least the next couple of days and pending clinical improvement, will likely transition her to oral Augmentin to cover for anaerobic bacteria given that the lab did identify some anaerobes on microscopy. We also reached out to Dr. Santacruz/Aminta ,oral surgeon and while they are available to come in to surgically remove the likely infected tooth, they are wondering if it is possible for her to wait to follow-up with them as an outpatient. Given that she is clinically been improving better, I see no urgent need to have oral surgery get involved at this time. We will have her follow-up with oral surgery this or Saturday for follow-up and scheduling of her next procedure. CHAZ
--- NOTE | 2020-04-22 09:48 | RO ---
OPERATIVE NOTE DATE OF OPERATION: 02/12/2020 PREOPERATIVE DIAGNOSIS: Right neck abscess. POSTOPERATIVE DIAGNOSIS: Right neck abscess. PROCEDURE PERFORMED: Incision and drainage of the right neck abscess. ANESTHESIA: General. CLINICAL PREAMBLE: This is a 64-year-old woman who presented to the emergency department of [facility] complaining of an enlarging right neck mass over the past 7-10 days. She has not taken the antibiotic as advised by her physician. CT scan of the neck done on February 12, 2020 showed a large loculated right neck abscess 6.5 x 5.8 x 3.3 cm. It extended from the angle of the right mandible down to the cricoid cartilage with moderate surrounding inflammation. Management options including incision and drainage of the right neck abscess on an urgent basis have been discussed with the patient. She understood and consent to the procedure after a detailed risks and benefits discussion. OR NARRATION: The patient was brought up to the OR holding area from the ED in stable condition. She was then brought to the operating room in stable condition. In supine position on the operating table, the patient received general anesthesia followed orotracheal intubation without incident. The patient was prepped and draped in the usual fashion for the procedure. The patient's head was turned to the left side to expose the right neck. A large indurated fluctuant mass was noted along the upper 2/3 of the right neck. A curvilinear incision was outlined at least two fingerbreadths below the right angle of the mandible. It was outlined and then infiltrated with 1% lidocaine with 1:100,000 epinephrine. The incision was carried through the subcutaneous tissue and the platysma. The cavity of the right neck abscess was then encountered and penetrated along the anterior border of the right sternocleidomastoid muscle. Foul-smelling purulent discharge was then drained. Swabs were taken for C&S, gram stain, anaerobic culture, acid-fast bacillus stain and fungal stain as well. In addition, commissary representative tissue was also taken from the right neck to be sent for pathology for permanent section as well. The abscess cavity in the right neck was then probed in order to break up the multiple loculations noted on the CT scan. At least 10-15 mL of purulent discharge was drained. The abscess cavity was then copiously irrigated using a power supervisor shed workers as well. A 1/2 inch Devin drain was then inserted into the right abscess cavity of the neck. The Dillon was then secured to the skin with a Prolene suture. Soft dressing was then applied over the Dillon sites. At the end of the procedure, sponge and instrument counts were correct. No complications were encountered. Estimated blood loss was approximately 5 mL. General anesthesia was reversed and the patient was extubated and brought to the recovery room in stable condition. CHAZ
== END 2020-02-16 15:40 | disposition home or self-care (01) | DRG 364 ==
LOC: M ED 09:14 → M ED INP 14:47 → ENRESERV 15:29 → M PCU 19:51
PROVIDERS: ADMIT Internal Medicine; ATTEND Internal Medicine Nephrology
PROC: 0W9600Z Drainage of Neck with Drainage Device, Open Approach (ICD-10-PCS; principal; 2020-02-12 15:29)
DX: L02.11 Cutaneous abscess of neck (principal); M72.6 Necrotizing fasciitis; Z20.828 Contact with and (suspected) exposure to other viral communicable diseases; Z79.899 Other long term (current) drug therapy; K05.6 Periodontal disease, unspecified; B95.5 Unspecified streptococcus as the cause of diseases classified elsewhere

== ENCOUNTER → 2020-02-24 | Outpatient (REF) | payer OTHER ==
[~2020-02-24] MED LIST: AUGM875T28 PO; BIOT1CAP2 PO; COQ1200C3 PO; FISH1000 PO; IBUP200T45 PO; LUTE20CA7 PO; VITA-158 PO; VITA1CAP21 PO; VITA400C56 PO
== END ==
LOC: M LAB REF 15:31
PROVIDERS: ATTEND Physician Assistant Medical
DX: R22.1 Localized swelling, mass and lump, neck (principal)

== ENCOUNTER → 2020-03-21 | Outpatient (CLI) | payer OTHER ==
[~2020-03-21] MED LIST changes: +ISOVUE-370 76% 100ML VIAL As Ordered ONE
== END ==
LOC: M RAD 11:15
PROVIDERS: ATTEND Otolaryngology
DX: R22.1 Localized swelling, mass and lump, neck (principal)
CPT/HCPCS: 70491; Q9967